=== PATIENT | female | born 1975 | race Caucasian/White ===

== ENCOUNTER 2018-12-24 08:58 | Emergency (ER) | payer BC ==
[~2018-12-24] VITALS: Wt 80.0 kg
[2018-12-24] MEDS ORDERED: morphine 4 MG/ML VIAL IV STA (10:09)
[2018-12-24] MEDS ORDERED: ONDANSETRON 4 MG INJ IV STA (10:09)
--- NOTE | 2018-12-24 11:10 | ERD ---
ER Documentation Chief Complaint Chief Complaint low abd pain and low back pain for the past week.nausea no vomiting HPI This is a 43-year-old female who is here for bilateral lower quadrant and bilateral lumbar pain. The patient has had pain for 2 days now that is been relatively constant describes a dull ache. No fever no dysuria no hematuria no nausea vomiting diarrhea. The patient says she was treated with a UTI last week and took her antibiotics. She did not have these symptoms then. Nothing seems to make the pain worse or better ROS All systems reviewed and are negative except as per history of present illness. Allergies Allergies: Coded Allergies: lidocaine (Verified Allergy, Unknown, 12/24/18) PMhx/Soc History of Surgery: Yes (gallbladder, appendix) Anesthesia Reaction: No Hx Neurological Disorder: No Hx Respiratory Disorders: No Hx Cardiac Disorders: No Hx Psychiatric Problems: No Hx Miscellaneous Medical Probl: No Hx Alcohol Use: No Hx Substance Use: No Hx Tobacco Use: No Smoking Status: Never smoker FmHx Family History: No coronary disease Physical Exam Vitals Vital Signs Date Temp Pulse Resp B/P (MAP) Pulse Ox O2 O2 Flow FiO2 Time Delivery Rate 12/24/18 98.5 83 18 140/75 99 09:04 (96) Physical Exam Const: Well-developed, well-nourished Head: Atraumatic, normocephalic Eyes: Normal Conjunctiva, PERRLA, EOMI, normal sclera, no nystagmus ENT: Normal External Ears, Nose and Mouth, moist mucus membranes. Neck: Full range of motion. No meningismus, no lymphadenopathy. Resp: Clear to auscultation bilaterally, no wheezing, rhonchi, rales Cardio: Regular rate and rhythm, no murmurs, S1 S2 present Abd: Soft, mild bilateral lower quadrant tenderness non distended. Normal bowel sounds, no guarding or rebound, no pulsitile abdominal masses or bruits Skin: No petechiae or rashes, no ecchymosis , no maculopapular rash Back: No midline or flank tenderness Ext: No cyanosis, or edema, FROM x 4, normal inspection, n eurovascularly intact x 4 Neur: Awake and alert, STR 5/5 x 4, sensation intact x 4, no focal f indings, cerebellum intact Psych: Normal Mood and Affect Result Diagram: 12/24/18 1030 12/24/18 1030 Results 24 hrs Laboratory Tests Test 12/24/18 10:30 White Blood Count 8.9 10^3/ul Red Blood Count 4.34 10^6/ul Hemoglobin 13.4 g/dl Hematocrit 40.3 % Mean Corpuscular Volume 92.9 fl Mean Corpuscular Hemoglobin 30.9 pg Mean Corpuscular Hemoglobin Concent 33.3 g/dl Red Cell Distribution Width 12.0 % Platelet Count 272 10^3/UL Mean Platelet Volume 11.5 fl Immature Granulocytes % 0.500 % Neutrophils % 76.2 % Lymphocytes % 17.7 % Monocytes % 4.6 % Eosinophils % 0.8 % Basophils % 0.2 % Nucleated Red Blood Cells % 0.0 /100WBC Immature Granulocytes # 0.040 10^3/ul Neutrophils # 6.8 10^3/ul Lymphocytes # 1.6 10^3/ul Monocytes # 0.4 10^3/ul Eosinophils # 0.1 10^3/ul Basophils # 0.0 10^3/ul Nucleated Red Blood Cells # 0.0 10^3/ul Urine Color STRAW Urine Clarity SLIGHTLY CLOUDY Urine pH 7.0 Urine Specific [place]eson 1.001 Urine Ketones NEGATIVE mg/dL Urine Nitrite NEGATIVE mg/dL Urine Bilirubin NEGATIVE mg/dL Urine Urobilinogen NEGATIVE mg/dL Urine Leukocyte Esterase 3+ Lani/ul Urine Microscopic RBC 1 /HPF Urine Microscopic WBC 3 /HPF Urine Squamous Epithelial Cells FEW /HPF Urine Bacteria FEW /HPF Urine Hemoglobin 1+ mg/dL Urine Glucose NEGATIVE mg/dL Urine Total Protein NEGATIVE mg/dl Urine Test NEGATIVE Sodium Level 143 mmol/L Potassium Level 3.7 mmol/L Chloride Level 104 mmol/L Carbon Dioxide Level 26 mmol/L Anion Gap 13 Blood Urea Nitrogen 7 mg/dl Creatinine 0.54 mg/dl Est Glomerular Filtrat Rate mL/min > 60 mL/min Glucose Level 122 mg/dl Calcium Level 9.7 mg/dl Total Bilirubin 0.4 mg/dl Direct Bilirubin 0.00 mg/dl Indirect Bilirubin 0.4 mg/dl Aspartate Amino Transf (AST/SGOT) 27 IU/L Alanine Aminotransferase (ALT/SGPT) 30 IU/L Alkaline Phosphatase 80 IU/L Total Protein 7.5 g/dl Albumin 4.4 g/dl Globulin 3.10 g/dl Albumin/Globulin Ratio 1.41 Lipase 62 U/L Current Medications Medications Dose Sig/Jovon Start Time Status Last (Trade) Ordered Route PRN Stop Time Admin Dose Reason Admin Morphine 4 mg ONCE STAT 12/24/18 DC Sulfate IV 10:09 (morphine) 12/24/18 10:10 Ondansetron 4 mg ONCE STAT 12/24/18 DC HCl (Zofran IV 10:09 Inj) 12/24/18 10:10 IV Flush 10 ml STK-MED 12/24/18 DC 12/24/18 (NS 10 ml) ONCE .ROUTE 11:34 11:51 12/24/18 11:35 Sodium 100 ml @ ud STK-MED 12/24/18 DC 12/24/18 Chloride ONCE .ROUTE 11:34 11:51 12/24/18 11:35 Iohexol 150 ml STK-MED 12/24/18 DC 12/24/18 (Omnipaque ONCE .ROUTE 11:34 11:51 300mg/ ml) 12/24/18 11:35 Procedures/MDM MR #: [id number] DOS: 12/24/18 1009 Ordering MD: TIFFANIE RDZ DO Location: E/R Room/Bed: PROCEDURE: CT Abdomen and Pelvis with contrast. CLINICAL INDICATION: Abdominal pain. TECHNIQUE: CT scan of the abdomen and pelvis with contrast was performed on a multi-detector high-resolution CT scanner. The patient was scanned following the uncomplicated intravenous administration of 100 cc of Omnipaque 300 IV contrast. Coronal and sagittal reformatted images were obtained from the axial source images. DICOM images are available. CTDI equals 19.99 mGy, and DLP equals 1102.96 mGy-cm. One or more of the following dose reduction techniques were used: - Automated exposure control. - Adjustment of the mA and/or kV according to patient size. - Use of iterative reconstruction technique. COMPARISON: None. FINDINGS: Lower thorax: Normal. Liver: Normal. Patent portal vein. Biliary: Status post cholecystectomy. No biliary dilatation. Pancreas: Normal. Spleen: Normal. Adrenal Glands: Normal. Genitourinary: Normal. Gastrointestinal: Stomach is decompressed. Small and large bowel with normal caliber. Appendix is not well seen in current study although there is no inflammatory changes involving cecal cap. Lymph nodes: Normal. Vascular: Normal. Peritoneum/mesentery: No free fluid or free air. Reproductive organs: Uterus is anteverted with IUD is in place. Normal bilateral ovaries. Musculoskeletal: Normal. Abdominal wall: Small fat containing umbilical hernia. IMPRESSION: 1. No mass, adenopathy, or acute inflammatory process. 2. Status post cholecystectomy. 3. Small fat containing umbilical hernia. RPTAT: QQ Physician Anthony Date Time Electronically viewed and signed by iman Soliman Physician on 12/24/2018 12:07 rV/ CC: TIFFANIE RDZ DO [id number] CT abdomen does not show any acute pathology and blood work looks unremarkable. She does have 3 white blood cells in her urine but no significant. She may have a viral illness or possible bad food exposure Departure Diagnosis: Primary Impression: Abdominal pain Abdominal location: lower abdomen, unspecified Qualified Codes: R10.30 - Lower abdominal pain, unspecified Condition: Stable TIFFANIE RDZ DO Dec 24, 2018 11:10
[2018-12-24] MEDS ORDERED: IOHEXOL 300MG/ML 150 ML BTL ONE (11:34)
[2018-12-24] MEDS ORDERED: SOD CHLORIDE 0.9% 100 ML ONE (11:34)
[2018-12-24] MEDS ORDERED: TRAM50TA2 PO (12:20)
[2018-12-24 12:41] VITALS: BP 109/64; PULSE 72; RESP 18
== END 2018-12-24 12:42 | disposition home or self-care (01) ==
LOC: E/R 08:58
DX: R10.31 Right lower quadrant pain (principal); R10.32 Left lower quadrant pain
CPT/HCPCS: 36415; 74177; 80053; 81001; 83690; 84703; 85025; 99284; Q9967; Z7610; J2270; J2405